=== PATIENT | male | born 1965 | race Caucasian/White ===

== ENCOUNTER 2016-04-09 09:35 | Emergency (ER) | payer OTHER ==
[~2016-04-09] VITALS: Ht 177.8 cm; Wt 111.1 kg
--- NOTE | 2016-04-09 10:16 | ED GENERAL ADULT ---
History of Present Illness General Chief Complaint: Low Back Pain/Injury Stated Complaint: LOW LEFT BACK PAIN Source: patient, family Exam Limitations: no limitations Vital Signs & Intake/Output Vital Signs & Intake/Output Vital Signs Date Time Temp Pulse Resp B/P Pulse O2 O2 Flow FiO2 Ox Delivery Rate 04/09 1151 98.7 100 158/92 04/09 0939 97.3 96 18 179/100 98 Room Air Allergies Coded Allergies: No Known Allergies (04/09/16) Reconcile Medications Cyclobenzaprine HCl 10 MG TABLET 1 TAB PO QPM PRN MUSCLE SPASMS Hydrocodone/Acetaminophen (Hydrocodon-Acetaminoph 7.5-325) 7.5 MG-325 MG TABLET 1 TAB PO Q6-PRN PRN PAIN (Reported) Methylprednisolone. (Medrol) 4 MG TAB.DS.PK 1 DP PO AD BACK PAIN 6 on day 1 then reduce by one tablet daily until gone Triage Note: 50 YEAR OLD MALE STATES THAT HE HAS BEEN HAVING L SIDE LOW BACK PAIN SINCE THURSDAY. WAS SEEN BY PMD WHO SENT HIM FOR RENAL US TO RULE OUT KIDNEY STONES. PT STATES THAT US WAS NEGATIVE. STATES THE PAIN COMES AND GOES AND SITTING MAKES IT WORSE Triage Nurses Notes Reviewed? yes Onset: Gradual Duration: day(s): (6) Timing: remote history Injury Environment: home Severity: moderate Severity Numbers: 7 No Modifying Factors: none HPI: Patient is a 50-year-old male presenting to the emergency Department chief complaint of left flank pain and left low back pain has been intermittent since Thursday. History of kidney stents in the past and this feels similar. Denies any urinary frequency urgency or dysuria. Denies hematuria. He saw his primary care physician who did a urinalysis test which was negative for blood. They also sent him for a renal ultrasound which was negative. Patient reports that the pain is progressively getting worse. Per family member he has had decreased by mouth intake. No vomiting or nausea. No fevers or chills. Denies abdominal pain. Has been using Vicodin prescribed by his primary care physician seems to help the pain slightly but then it returns. No chest pain palpitations or shortness of breath. Denies any heavy lifting or trauma. (RAHEEL CALLES,JOSE LUIS) Past History Travel History Traveled to [place] past 21 day No Medical History Any Pertinent Medical History? see below for history Neurological: NONE EENT: NONE Cardiovascular: NONE Respiratory: NONE Gastrointestinal: NONE Hepatic: NONE Renal: NONE Musculoskeletal: NONE Psychiatric: NONE Endocrine: NONE Blood Disorders: NONE Cancer(s): NONE Surgical History Surgical History: non-contributory Psychosocial History What is your primary language Honduran Tobacco Use: Never used ETOH Use: denies use Illicit Drug Use: denies illicit drug use Family History Hx Contributory? No (JOSE LUIS TALLEY) Review of Systems Review of Systems Constitutional: Reports: no symptoms. Comments Review of systems: See HPI, All other systems negative. Constitutional, no chills fever or weight loss HEENT: No visual changes no sore throat no congestion Cardiovascular: No chest pain ,palpitation , orthopnea or ankle swelling Skin, no jaundice no rashes Respiratory: No dyspnea cough sputum or hemoptysis GI: No nausea no vomiting : No dysuria No hematuria Muscle skeletal: no neck pain, Neurologic: No numbness no confusion Psych: No stress anxiety or depression,. Heme/endocrine: No bruising no bleeding no polyuria or polydipsia Immunology: No splenectomy or history of AIDS (JOSE LUIS TALLEY) Physical Exam Physical Exam General Appearance: well developed/nourished, no apparent distress, alert, awake , UNCOMFORTABLE Comments: Well-developed well-nourished person in no acute distress HEENT: Normal EENT exam, extraocular motion intact, no nystagmus. Pupils equally round and reactive to light and accommodation. Nose is atraumatic. Neck: Normal inspection Back: Positive left CVA tenderness, tender to palpation along the thoracic paraspinal muscles on the left. Limited range of motion secondary to pain. Negative modified straight leg raise bilaterally. Cardiovascular: Regular rate and rhythms no murmurs rubs or gallops, normal JVP Respiratory: Chest nontender. No respiratory distress.breath sounds clear to auscultation bilaterally Abdomen: Soft, nontender nondistended, no appreciable organomegaly. Normal bowel sounds. No ascites, no rebound or guarding. Extremity: No edema Neuro: Alert oriented x3, patellar reflexes are 2+ bilaterally. Skin: No appreciable rash on exposed skin, skin is warm and dry. Psych: Mood and affect is normal, memory and judgment is normal. Core Measures ACS in differential dx? No CVA/TIA Diagnosis: No Severe Sepsis Present: No Septic Shock Present: No (JOSE LUIS TALLEY) Progress Differential Diagnoses I considered the following diagnoses in my evaluation of the patient: Hydronephrosis, pyelonephritis, ureterolithiasis, renal colic, dehydration, acute kidney disease Plan of Care: Orders Procedure Date/time Status COMPREHENSIVE METABOLIC PANEL 04/09 1016 Complete CBC WITHOUT DIFFERENTIAL 04/09 1016 Complete Laboratory Tests 04/09/16 1241: CBC w Diff NO MAN DIFF REQ, RBC 5.53, MCV 86.3, MCH 30.0, RDW 12.8, MPV 8.2, Gran % 63.8, Lymphocytes % 23.4, Monocytes % 9.0, Eosinophils % 3.5, Basophils % 0.3, Absolute Granulocytes 4.6, Absolute Lymphocytes 1.7, Absolute Monocytes 0.7 H, Absolute Eosinophils 0.3, Absolute Basophils 0, PUBS MCHC 34.8 04/09/16 1047: Anion Gap 9, Estimated GFR > 60, BUN/Creatinine Ratio 16.4, Glucose 80, Calcium 10.0, Total Bilirubin 0.9, AST 40, ALT 45, Alkaline Phosphatase 69, Total Protein 7.3, Albumin 4.4, Globulin 2.9, Albumin/Globulin Ratio 1.5 04/09/16 1016: Urine Color Cancelled, Urine Clarity Cancelled, Urine pH Cancelled, Ur Specific [place] Cancelled, Urine Protein Cancelled, Urine Ketones Cancelled, Urine Nitrite Cancelled, Urine Bilirubin Cancelled, Urine Urobilinogen Cancelled, Ur Leukocyte Esterase Cancelled, Ur Microscopic Cancelled, Urine Hemoglobin Cancelled, Urine Glucose Cancelled Diagnostic Imaging: Viewed by Me: CT Scan. Discussed w/RAD: CT Scan. Radiology Impression: PATIENT: RICHI PADRON PRESENT AGE: 50 PATIENT ACCOUNT NO: [id number] : 64 LOCATION: [facility] ORDERING PHYSICIAN: JOSE LUIS CALLES SERVICE DATE: 04/09/16-1015 EXAM TYPE: CAT - CT ABD & PELVIS W/O IV CONTRAS EXAMINATION: CT ABDOMEN AND PELVIS WITHOUT CONTRAST CLINICAL INFORMATION: Left flank pain. COMPARISON: None TECHNIQUE: Multidetector volumetric imaging was performed from the superior aspect of the liver through the pubic symphysis. Sagittal and coronal reformatted images were obtained on the technologist's workstation. DLP: 778 mGy-cm. FINDINGS: LUNG BASES: There is focal atelectasis or a nodule left lung base. It measures 1.6 cm and lies adjacent to a left posterior ninth rib deformity. There are radiating fibers anteriorly which may represent scarring or atelectasis. LIVER, GALLBLADDER, AND BILIARY TREE: The liver is normal in size, shape, and attenuation. No focal hepatic lesion or biliary ductal dilatation is present. The gallbladder has been surgically removed. PANCREAS: Unremarkable. SPLEEN: Unremarkable. ADRENAL GLANDS: Unremarkable. KIDNEYS AND URETERS: The kidneys are normal in size, shape, and attenuation. No hydronephrosis, hydroureter, or calculi seen. No perinephric stranding. BLADDER: Unremarkable. GASTROINTESTINAL TRACT: Scattered stool in the right colon without distention. The appendix is normal caliber. The small bowel loops are normal caliber. No free air or free fluid seen. ABDOMINAL WALL: No significant hernia is appreciated. LYMPH NODES: Normal. VASCULAR: Unremarkable. PELVIC VISCERA: There is no free air or free fluid. No pelvic mass seen. No abnormal lymph nodes noted. OSSEOUS STRUCTURES: There is vacuum disc phenomenon with loss of disc height and spondylosis L5-S1 disc level. There is a L1 compression deformity of indeterminate age. There is deformity involving left ninth and 10th ribs. IMPRESSION: Left lower lobe pleural-based nodule adjacent to the deformed left posterior ninth rib. There are radiating strands which could be atelectasis or scarring. There is no acute intra-abdominal process seen. There are no signs of obstruction or inflammatory change. There are no radiopaque renal calculi or hydroureteronephrosis. Deformed left posterior 9th and 10th rib probably old injury. L1 compression fracture of indeterminate age. Mild posterior dorsal spine spondylosis. DICTATED BY: CHARLES BOWEN MD DATE/TIME DICTATED:04/09/161103 NET SOFTWARE ENGINEER:SUSHMA DATE/ TIME TRANSCRIBED:04/09/161103 CONFIDENTIAL, DO NOT COPY WITHOUT APPROPRIATE AUTHORIZATION. <Electronically signed in Other Vendor System> SIGNED BY: CHARLES BOWEN MD 04/09/16 1242 Initial ED EKG: none Comments: 04/09/2016 10:49:09 AM patient does have history of kidney stones with worsening left flank pain despite negative renal ultrasound. Patient is afebrile. Positive left CVA tenderness. We'll so CBC, CMP, urinalysis and CT scan to rule out stone. Patient given by mouth Vicodin for pain. 04/09/2016 12:52:22 PM patient informed of all CT results and lab work results. Patient did have an old injury where he broke several ribs on the left side and injured his spine. This was several years ago. Denies any new injuries. Patient will be started on Medrol Dosepak, Flexeril and continue taking Vicodin as needed for pain. (RAHEEL CALLES,JOSE LUIS) Departure Departure Time of Disposition: 1248 Disposition: HOME OR SELF CARE Condition: Stable Clinical Impression Primary Impression: Back pain Qualifiers: Back pain location: thoracic back pain Chronicity: unspecified Back pain laterality: left Qualified Code: M54.6 - Pain in thoracic spine Referrals: JONATHAN EDEN,MARIAA Luna (PCP/Family) Additional Instructions: Follow-up with her primary care physician cALL TO MAKE appointment. Take Medrol dosepak as prescribed. Continue taking Vicodin as previously prescribed for severe pain. He is [place] instructed for muscle spasms. Avoid heavy lifting. PATIENT: RICHI PADRON PRESENT AGE: 50 PATIENT ACCOUNT NO: [id number] : 64 LOCATION: [facility] ORDERING PHYSICIAN: JOSE LUIS CALLES SERVICE DATE: 04/09/16 EXAM TYPE: CAT - CT ABD & PELVIS W/O IV CONTRAS EXAMINATION: CT ABDOMEN AND PELVIS WITHOUT CONTRAST CLINICAL INFORMATION: Left flank pain. COMPARISON: None TECHNIQUE: Multidetector volumetric imaging was performed from the superior aspect of the liver through the pubic symphysis. Sagittal and coronal reformatted images were obtained on the technologist's workstation. DLP: 778 mGy-cm. FINDINGS: LUNG BASES: There is focal atelectasis or a nodule left lung base. It measures 1.6 cm and lies adjacent to a left posterior ninth rib deformity. There are radiating fibers anteriorly which may represent scarring or atelectasis. LIVER, GALLBLADDER, AND BILIARY TREE: The liver is normal in size, shape, and attenuation. No focal hepatic lesion or biliary ductal dilatation is present. The gallbladder has been surgically removed. PANCREAS: Unremarkable. SPLEEN: Unremarkable. ADRENAL GLANDS: Unremarkable. KIDNEYS AND URETERS: The kidneys are normal in size, shape, and attenuation. No hydronephrosis, hydroureter, or calculi seen. No perinephric stranding. BLADDER: Unremarkable. GASTROINTESTINAL TRACT: Scattered stool in the right colon without distention. The appendix is normal caliber. The small bowel loops are normal caliber. No free air or free fluid seen. ABDOMINAL WALL: No significant hernia is appreciated. LYMPH NODES: Normal. VASCULAR: Unremarkable. PELVIC VISCERA: There is no free air or free fluid. No pelvic mass seen. No abnormal lymph nodes noted. OSSEOUS STRUCTURES: There is vacuum disc phenomenon with loss of disc height and spondylosis L5-S1 disc level. There is a L1 compression deformity of indeterminate age. There is deformity involving left ninth and 10th ribs. IMPRESSION: Left lower lobe pleural-based nodule adjacent to the deformed left posterior ninth rib. There are radiating strands which could be atelectasis or scarring. There is no acute intra-abdominal process seen. There are no signs of obstruction or inflammatory change. There are no radiopaque renal calculi or hydroureteronephrosis. Deformed left posterior 9th and 10th rib probably old injury. L1 compression fracture of indeterminate age. Mild posterior dorsal spine spondylosis. DICTATED BY: CHARLES BOWEN MD DATE/TIME DICTATED:04/09/161103 NET SOFTWARE ENGINEER:SUSHMA DATE/TIME TRANSCRIBED:04/09/161103 CONFIDENTIAL, DO NOT COPY WITHOUT APPROPRIATE AUTHORIZATION. <Electronically signed in Other Vendor System> SIGNED BY: CHARLES BOWEN MD 04/09/16 1242 Departure Forms: Customer Survey General Discharge Information Prescriptions: Current Visit Scripts Methylprednisolone. (Medrol) 1 DP PO AD #1 DP 6 on day 1 then reduce by one tablet daily until gone Cyclobenzaprine HCl 1 TAB PO QPM PRN MUSCLE SPASMS #15 TAB (JOSE LUIS TALLEY) PA/BREAKFAST HOST Co-Sign Statement Statement: ED Attending supervision documentation- [] I saw and evaluated the patient. I have also reviewed all the pertinent lab results and diagnostic results. I agree with the findings and the plan of care as documented in the PA's/BREAKFAST HOST's documentation. x I have reviewed the ED Record and agree with the PA's/BREAKFAST HOST's documentation. [] Additions or exceptions (if any) to the PAs/BREAKFAST HOST's note and plan are summarized below: [] (MIRNA EDEN,VERNA) Critical Care Note Critical Care Note Critical Care Time: non-applicable (ELICIA TALLEYANTHA)
[2016-04-09] MEDS ORDERED: HYDROCODON-ACE1 EAC3 PO (10:54)
[2016-04-09 11:51] VITALS: BP 158/92
[2016-04-09 12:27] LABS: ABSOLUTE BASOPHIL COUNT 0 /CUMM (0.0-0.2); ABSOLUTE EOSINOPHIL COUNT 0.3 /CUMM (0.0-0.7); ABSOLUTE GRANULOCYTE CT 4.6 /CUMM (1.4-6.5); ABSOLUTE LYMPH COUNT 1.7 /CUMM (1.2-3.4); ABSOLUTE MONOCYTE COUNT 0.7 /CUMM (0.10-0.60); BASOPHIL % 0.3 % (0.0-2.0); EOSINOPHIL % 3.5 % (0-5); GRANULOCYTE % 63.8 % (42.2-75.2); HEMATOCRIT 47.8 % (42-52); MEAN CORPUSCULAR HGB CONC 34.8 G/DL (33.0-37.0); MEAN CORPUSCULAR VOLUME 86.3 FL (80.0-94.0); MEAN PLATELET VOLUME 8.2 FL (7.4-10.4); PLATELET COUNT 194 /CUMM (130-400); RBC DISTRIBUTION WIDTH 12.8 % (11.5-14.5); RED BLOOD CELL CT 5.53 /CUMM (4.70-6.10); WHITE BLOOD CELL COUNT 7.3 /CUMM (4.8-10.8)
--- NOTE | 2016-04-09 12:42 | CT SCAN REPORT ---
EXAMINATION: CT ABDOMEN AND PELVIS WITHOUT CONTRAST CLINICAL INFORMATION: Left flank pain. COMPARISON: None TECHNIQUE: Multidetector volumetric imaging was performed from the superior aspect of the liver through the pubic symphysis. Sagittal and coronal reformatted images were obtained on the technologist's workstation. DLP: 778 mGy-cm. FINDINGS: LUNG BASES: There is focal atelectasis or a nodule left lung base. It measures 1.6 cm and lies adjacent to a left posterior ninth rib deformity. There are radiating fibers anteriorly which may represent scarring or atelectasis. LIVER, GALLBLADDER, AND BILIARY TREE: The liver is normal in size, shape, and attenuation. No focal hepatic lesion or biliary ductal dilatation is present. The gallbladder has been surgically removed. PANCREAS: Unremarkable. SPLEEN: Unremarkable. ADRENAL GLANDS: Unremarkable. KIDNEYS AND URETERS: The kidneys are normal in size, shape, and attenuation. No hydronephrosis, hydroureter, or calculi seen. No perinephric stranding. BLADDER: Unremarkable. GASTROINTESTINAL TRACT: Scattered stool in the right colon without distention. The appendix is normal caliber. The small bowel loops are normal caliber. No free air or free fluid seen. ABDOMINAL WALL: No significant hernia is appreciated. LYMPH NODES: Normal. VASCULAR: Unremarkable. PELVIC VISCERA: There is no free air or free fluid. No pelvic mass seen. No abnormal lymph nodes noted. OSSEOUS STRUCTURES: There is vacuum disc phenomenon with loss of disc height and spondylosis L5-S1 disc level. There is a L1 compression deformity of indeterminate age. There is deformity involving left ninth and 10th ribs. IMPRESSION: Left lower lobe pleural-based nodule adjacent to the deformed left posterior ninth rib. There are radiating strands which could be atelectasis or scarring. There is no acute intra-abdominal process seen. There are no signs of obstruction or inflammatory change. There are no radiopaque renal calculi or hydroureteronephrosis. Deformed left posterior 9th and 10th rib probably old injury. L1 compression fracture of indeterminate age. Mild posterior dorsal spine spondylosis.
[2016-04-09] MEDS ORDERED: MEDROL4 M2 PO (12:50)
[2016-04-09] MEDS ORDERED: CYCLOBENZAPRINE10 M1 PO (12:50)
== END 2016-04-09 12:56 ==
LOC: ERH 09:35
PROVIDERS: Physician Assistant
DX: M54.6 Pain in thoracic spine (principal)
CPT/HCPCS: 74176